=== PATIENT | male | born 1945 | race Caucasian/White ===

== ENCOUNTER → 2025-03-04 09:50 | Outpatient (BNVA) | payer BC, SELFPAY | PROVIDERS: PCP Family Medicine; Visit Provider Family Medicine | DX: E29.1 Testicular hypofunction (principal); R73.03 Prediabetes; E03.9 Hypothyroidism, unspecified; R10.9 Unspecified abdominal pain | CPT/HCPCS: 80053; 80061; 82607; 83036; 83690; 84403; 84443; 85025 ==

== ENCOUNTER → 2025-03-25 08:23 | Outpatient (BNVA) | payer BC, SELFPAY | PROVIDERS: PCP Family Medicine; Visit Provider Family Medicine | DX: E29.1 Testicular hypofunction (principal) | CPT/HCPCS: 84403 ==